=== PATIENT | female | born 1970 | race Caucasian/White ===

== ENCOUNTER 2017-08-18 04:49 | Inpatient (IN) | payer BC ==
[~2017-08-18] VITALS: Ht 162.5 cm; Wt 50.8 kg
[2017-08-18 04:49] VITALS: BP 127/71
[~2017-08-18 04:49] MED LIST: ANAPROX DS550 MG PO
[2017-08-18 05:18] LABS: BASO % 0.3 % (0.0-1.0); EOS % 0.6 % (1.0-4.0); HEMATOCRIT 37.8 % (37.0-47.0); HEMOGLOBIN 12.9 g/dl (12.0-16.0); LYMPH # 1.1 10*3/uL (1.3-4.4); LYMPH % 16.4 % (27.0-41.0); MEAN CORPUSCULAR HGB 34.1 pg (27.0-31.0); MEAN CORPUSCULAR HGB CONC 34.1 g/dl (33.0-37.0); MEAN PLATELET VOLUME 10.1 fl (9.6-12.3); MONO # 0.3 10*3/uL (0.1-1.0); NEUT # 5.2 10*3/uL (2.3-7.9); NEUT % 78.4 % (47.0-73.0); PLATELET COUNT AUTOMATED 233 10*3/uL (130-400); RED BLOOD COUNT 3.78 10*6/uL (4.10-5.10); RED CELL DISTRI WIDTH 11.8 % (0-14.5); WHITE BLOOD COUNT 6.6 10*3/uL (4.8-10.8)
[2017-08-18 05:27] LABS: BILIRUBIN NEGATIVE (NEGATIVE); BLOOD 3+ (NEGATIVE); CLARITY CLEAR (CLEAR); COLOR YELLOW (YELLOW); GLUCOSE NEGATIVE (NEGATIVE); KETONE NEGATIVE (NEGATIVE); LEUKO ESTERASE NEGATIVE (NEGATIVE); NITRITE NEGATIVE (NEGATIVE); SPECIFIC GRAVITY 1.025 (1.005-1.030); UROBILINOGEN 0.2 E.U./dl (0.2-1.0)
[2017-08-18 05:37] LABS: ALKALINE PHOSPHATASE 76 U/L (45-117); BUN 18 mg/dl (7-24); CHLORIDE 107 mmol/L (98-107); CREATININE 0.74 mg/dL (0.55-1.02); LIPASE 136 U/L (73-393); POTASSIUM 3.9 mmol/L (3.5-5.1); SGOT/AST 8 IU/L (3-35); SGPT/ALT 19 U/L (12-78); SODIUM 141 mmol/L (136-145)
[2017-08-18 05:37] LABS: EPITHELIAL CELLS 20-25; RBC 21-30 rbc/hpf (0-2)
[2017-08-18 05:38] LABS: B-hCG (QUALITATIVE) NEGATIVE (NEGATIVE)
[2017-08-18 05:38] LABS: BACTERIA TRACE
[2017-08-18 05:39] LABS: TROPONIN I < 0.015 ng/ml (<0.045)
[2017-08-18 07:18] VITALS: BP 120/66
[2017-08-18 08:12] VITALS: BP 119/68
[2017-08-18 12:00] VITALS: BP 102/60
[2017-08-18 16:00] VITALS: BP 106/57
[2017-08-18 20:00] VITALS: BP 114/58
[2017-08-19] VITALS (9 sets, daily range): BP systolic 86–110; BP diastolic 44–55
[2017-08-19 07:18] LABS: BASO % 0.5 % (0.0-1.0); EOS # 0.1 10*3/uL (0.0-0.4); EOS % 1.9 % (1.0-4.0); HEMATOCRIT 37.5 % (37.0-47.0); HEMOGLOBIN 12.3 g/dl (12.0-16.0); LYMPH # 1.1 10*3/uL (1.3-4.4); LYMPH % 25.9 % (27.0-41.0); MEAN CELL VOLUME 102.7 fl (81.0-99.0); MEAN CORPUSCULAR HGB 33.7 pg (27.0-31.0); MEAN CORPUSCULAR HGB CONC 32.8 g/dl (33.0-37.0); MEAN PLATELET VOLUME 10.2 fl (9.6-12.3); MONO # 0.3 10*3/uL (0.1-1.0); MONO % 6.2 % (3.0-9.0); NEUT # 2.7 10*3/uL (2.3-7.9); NEUT % 65.3 % (47.0-73.0); PLATELET COUNT AUTOMATED 220 10*3/uL (130-400); RED BLOOD COUNT 3.65 10*6/uL (4.10-5.10); RED CELL DISTRI WIDTH 11.9 % (0-14.5); WHITE BLOOD COUNT 4.2 10*3/uL (4.8-10.8)
[2017-08-19 07:36] LABS: ACT PARTIAL THROMBO TIME 24.6 SECONDS (20.8-31.5); INTERNATIONAL NORM RATIO 0.9 (2.0-3.5)
[2017-08-19 07:55] LABS: ALBUMIN 3.4 gm/dl (3.1-4.5); CHLORIDE 113 mmol/L (98-107); CREATININE 0.77 mg/dL (0.55-1.02); HDL CHOLESTEROL 58 mg/dl (40-60); PHOSPHOROUS 2.1 mg/dL (2.5-4.9); POTASSIUM 3.6 mmol/L (3.5-5.1); SGOT/AST 11 IU/L (3-35); SGPT/ALT 19 U/L (12-78); SODIUM 144 mmol/L (136-145)
[2017-08-19 08:02] LABS: ALKALINE PHOSPHATASE 56 U/L (45-117); CHOLESTEROL 141 mg/dL (<200); FREE T4 0.89 ng/dl (0.76-1.46); LDL CHOLESTEROL 66 mg/dL (9-159); TOTAL PROTEIN 6.2 gm/dL (6.4-8.2); TRIGLYCERIDES 84 mg/dl (<150); VLDL CHOLESTEROL 17 mg/dL (6-40)
[2017-08-19 08:18] LABS: BUN 6 mg/dl (7-24)
[2017-08-19] MEDS ORDERED: B12,B-12,B 12500 MC1 PO (16:14)
[2017-08-19] MEDS ORDERED: NORCO 5-325 TA1 EACH PO (16:14)
[2017-08-19] MEDS ORDERED: VITAMIN D-32000 UNI1 PO (16:14)
== END 2017-08-19 18:00 | disposition home or self-care (01) | DRG 419 ==
LOC: ED 04:49 → EDHOLD 07:36 → 4E 07:36
PROVIDERS: Emergency Medicine Emergency Medical Services; Internal Medicine
PROC: 0FT44ZZ Resection of Gallbladder, Percutaneous Endoscopic Approach (ICD-10-PCS; principal; 2017-08-19)
PROC: BF121ZZ Fluoroscopy of Gallbladder using Low Osmolar Contrast (ICD-10-PCS; principal; 2017-08-19)
DX: K80.62 Calculus of gallbladder and bile duct with acute cholecystitis without obstruction (principal); I95.9 Hypotension, unspecified; D72.810 Lymphocytopenia; D75.89 Other specified diseases of blood and blood-forming organs; K21.9 Gastro-esophageal reflux disease without esophagitis; R82.71 Bacteriuria; R31.29 Other microscopic hematuria; Z82.3 Family history of stroke; Z88.2 Allergy status to sulfonamides; Z88.1 Allergy status to other antibiotic agents

== ENCOUNTER 2021-10-04 15:59 | Emergency (ER) | payer OTHER ==
[~2021-10-04] VITALS: Wt 54.4 kg
[~2021-10-04 15:59] MED LIST changes: +B12,B-12,B 12500 MC1 PO; +NORCO 5-325 TA1 EACH PO; +VITAMIN D-32000 UNI1 PO
[2021-10-04 17:56] LABS: BASO % 0.2 % (0.0-1.0); EOS # 0.1 10*3/uL (0.0-0.4); EOS % 0.7 % (1.0-4.0); HEMATOCRIT 36.9 % (37.0-47.0); LYMPH # 1.1 10*3/uL (1.3-4.4); LYMPH % 9.3 % (27.0-41.0); MEAN CELL VOLUME 92.9 fl (81.0-99.0); MEAN CORPUSCULAR HGB CONC 35.5 g/dl (33.0-37.0); MEAN PLATELET VOLUME 9.9 fl (9.6-12.3); MONO # 0.8 10*3/uL (0.1-1.0); MONO % 6.9 % (3.0-9.0); NEUT # 9.6 10*3/uL (2.3-7.9); PLATELET COUNT AUTOMATED 205 10*3/uL (130-400); RED BLOOD COUNT 3.97 10*6/uL (4.10-5.10); WHITE BLOOD COUNT 11.7 10*3/uL (4.8-10.8)
[2021-10-04 18:18] LABS: ALKALINE PHOSPHATASE 81 U/L (45-117); CHLORIDE 113 mmol/L (98-107); CREATININE 0.66 mg/dL (0.55-1.02); LIPASE 49 U/L (73-393); POTASSIUM 5.1 mmol/L (3.5-5.1); SGOT/AST 68 IU/L (3-35); SGPT/ALT 59 U/L (12-78); SODIUM 139 mmol/L (136-145); TOTAL PROTEIN 6.8 gm/dL (6.4-8.2)
[2021-10-04 18:28] LABS: BUN 11 mg/dl (7-24)
[2021-10-04 18:47] LABS: BILIRUBIN Negative (Negative); BLOOD 2+ (Negative); CLARITY Clear (Clear); COLOR Yellow (Yellow); GLUCOSE Negative (Negative); KETONE 2+ (Negative); LEUKO ESTERASE Trace (Negative); NITRITE Negative (Negative); PH 5.5 (4.5-8.0)
[2021-10-04 19:14] LABS: BACTERIA 2+; MUCOUS 1+; RBC 16-20 rbc/hpf (0-2)
[2021-10-04] MEDS ORDERED: AMOX-CLAV 875-1 EACH PO (19:19)
[2021-10-04] MEDS ORDERED: HYDROCODONE-AC1 EAC1 PO (19:19)
== END 2021-10-04 19:21 | disposition home or self-care (01) ==
LOC: ED 15:59
PROVIDERS: Physician Assistant
DX: K57.32 Diverticulitis of large intestine without perforation or abscess without bleeding (principal); Z90.49 Acquired absence of other specified parts of digestive tract; Z88.2 Allergy status to sulfonamides; Z88.1 Allergy status to other antibiotic agents; Z79.899 Other long term (current) drug therapy; Z98.890 Other specified postprocedural states; Z90.89 Acquired absence of other organs

== ENCOUNTER 2023-08-09 18:31 | Emergency (ER) | payer OTHER ==
[~2023-08-09] VITALS: Ht 162.5 cm; Wt 54.4 kg
[~2023-08-09 18:31] MED LIST changes: +AMOX-CLAV 875-1 EACH PO; +HYDROCODONE-AC1 EAC1 PO
[2023-08-09] MEDS ORDERED: ACETAMINOPHEN 325 MG TAB PO ONE (18:50)
[2023-08-09 19:07] LABS: BASO % 0.3 % (0.0-1.0); HEMATOCRIT 38.6 % (37.0-47.0); LYMPH # 0.6 10*3/uL (1.3-4.4); LYMPH % 16.2 % (27.0-41.0); MEAN CELL VOLUME 96.3 fl (81.0-99.0); MEAN CORPUSCULAR HGB 32.7 pg (27.0-31.0); MEAN CORPUSCULAR HGB CONC 33.9 g/dl (33.0-37.0); MEAN PLATELET VOLUME 9.1 fl (9.6-12.3); MONO # 0.3 10*3/uL (0.1-1.0); MONO % 7.1 % (3.0-9.0); NEUT % 76.1 % (47.0-73.0); PLATELET COUNT AUTOMATED 195 10*3/uL (130-400); RED BLOOD COUNT 4.01 10*6/uL (4.10-5.10); RED CELL DISTRI WIDTH 11.8 % (0-14.5)
[2023-08-09 19:24] LABS: ALKALINE PHOSPHATASE 86 U/L (46-116); BUN 12 mg/dl (9-23); CHLORIDE 106 mmol/L (98-107); CPK 76 U/L (34-171); POTASSIUM 3.8 mmol/L (3.4-5.1); SGPT/ALT 21 U/L (5-49)
[2023-08-09] MEDS ORDERED: VIBRAMYCIN100 MG PO (19:28)
[2023-08-09] MEDS ORDERED: CEPHALEXIN500 M1 PO (19:28)
[2023-08-09] MEDS ORDERED: CEPHALEXIN 500 MG CAP PO ONE (19:35)
[2023-08-09] MEDS ORDERED: Doxycycline Hyclate 100 MG CAP PO ONE (19:35)
== END 2023-08-09 20:11 | disposition home or self-care (01) ==
LOC: ED 18:31
PROVIDERS: Physician Assistant Medical
DX: L03.115 Cellulitis of right lower limb (principal); R50.9 Fever, unspecified; Z88.2 Allergy status to sulfonamides; Z88.1 Allergy status to other antibiotic agents; Z98.890 Other specified postprocedural states; Z90.89 Acquired absence of other organs